=== PATIENT | female | born 1935 | race Caucasian/White ===

== ENCOUNTER 2017-05-14 10:38 | Inpatient (IN) ==
[2017-05-14] MEDS ORDERED: ASPIRIN PO STA (10:51)
[2017-05-14] MEDS ORDERED: NS 1,000 ML IV ONE ×2 (10:56→12:45)
[2017-05-14] MEDS ORDERED: ZOFRAN IV ONE (11:20)
--- NOTE | 2017-05-14 11:21 | EKG Report ---
Test Performed on : 05/14/2017 11:18:10 AM Test Reason : CHEST PAIN Blood Pressure : / mmHG Vent. Rate : 077 BPM Atrial Rate : 077 BPM P-R Int : 162 ms QRS Dur : 090 ms QT Int : 396 ms P-R-T Axes : 059 038 058 degrees QTc Int : 448 ms Normal sinus rhythm. Nonspecific ST abnormality Abnormal ECG No previous ECGs available Unconfirmed Result
[2017-05-14 11:27] LABS: MANUAL DIFF NEEDED? NO
[2017-05-14 11:31] LABS: HEMATOCRIT 30.6 % (37.0-47.0); HEMOGLOBIN 11.5 g/dL (12.0-16.0); IMM GRAN# 0.02 X1000 (0.0-0.04); IMM GRAN% 0.2 % (0.0-0.5); LYMPH% 3.8 % (20.5-51.1); MCH 31.8 PG (27-31); MCHC 37.6 g/dL (33-37); MCV 84.5 FL (81-99); MONO% 3.8 % (1.7-9.3); MPV 8.5 FL (7.4-10.4); NEUT% 92.2 % (42.2-75.2); PLT 254 X1000 (130-400); RBC 3.62 XMIL (4.2-5.4)
--- NOTE | 2017-05-14 11:54 | Diag Imaging Result Doc PS360 ---
EXAM: CHEST-2 VIEWS HISTORY: CP TECHNIQUE: PA and lateral chest COMMENT: There is apparent COPD. There is marked upper thoracic kyphosis. The heart size and pulmonary vascularity are within normal limits and there are no previous studies. IMPRESSION: COPD. Electronically signed by Jamie Wynne 05/14/2017 11:52 AM
--- NOTE | 2017-05-14 11:57 | Diag Imaging Result Doc PS360 ---
EXAM: ABDOMEN FLAT/UPRIGHT HISTORY: vomiting TECHNIQUE: Flat and upright abdomen COMMENT: There is a large amount of stool in the rectum. There is no evidence of bowel obstruction organomegaly or mass. IMPRESSION: Fecal impaction. Electronically signed by Jamie Wynne 05/14/2017 11:54 AM
[2017-05-14] MEDS ORDERED: DULCOLAX PO ONE (12:05)
[2017-05-14 12:19] LABS: AGAP 17; ALBUMIN 4.7 g/dL (3.5-5.0); ALKALINE PHOSPHATASE 65 U/L (32-104); BUN 13 mg/dL (8-22); CALCIUM 9.3 mg/dL (8.8-10.2); CHLORIDE 69 mmol/L (98-107); CK PROFILE 360 U/L (24-173); COSMO 222; GOT 32 U/L (10-30); GPT 22 U/L (10-36); MAGNESIUM 1.5 mg/dL (1.5-2.7); TCO2 21 mmol/L (25-35); TOTAL PROTEIN 7.1 g/dL (6.3-8.3)
[2017-05-14 12:35] LABS: CK INDEX 2.9 (0.0-2.5); CK-MB 10.32 ng/mL (0.0-5.0)
[2017-05-14] MEDS ORDERED: POTASSIUM CHLORIDE 20% LIQUID PO ONE (12:44)
--- NOTE | 2017-05-14 12:55 | PROVIDER DOCUMENTATION ---
This chart was entered by Maureen Kimble Scribe, acting as scribe for Dg Castro MD. HPI-General Adult - General Chief Complaint: Weakness Stated Complaint: weakness Time Seen by Provider: 05/14/17 10:54 Source: patient, family Allergies/Adverse Reactions: Patient Allergies Allergy/AdvReac Type Severity Reaction Status Date / Time divalproex sodium Allergy Unknown Verified 05/14/17 10:41 [From Depakote] morphine Allergy Unknown Verified 05/14/17 10:41 Home Medications: Home Medication List Medication Instructions Recorded Confirmed Last Taken Type Budesonide [Pulmicort Flexhaler] 05/14/17 05/14/17 Unknown History Celecoxib [Celecoxib] 05/14/17 Unknown History Metoprolol Tartrate [Metoprolol 05/14/17 05/14/17 Unknown History Tartrate] Valsartan/Hydrochlorothiazide 1 each PO DAILY 05/14/17 05/14/17 Unknown History [Valsartan-Hctz 160-25 mg Tab] - History of Present Illness -Gen Adult Nature of Presenting Problems: 81 yo F presents to the ER with complaint of n/v and weakness x3 days. States they have been having some "family problems" and this was when it all started. Denies CP or SOB. Onset/Duration: reports: 3 days ago Associated Symptoms: reports: nausea, vomiting, weakness Review of Systems - Adult - REVIEW OF SYSTEMS - ADULT Constitutional: denies: chills, fever Eyes: reports: no symptoms reported Ears, Nose, Mouth & Throat: reports: no symptoms reported Cardiovascular: denies: chest pain, palpitations Respiratory: denies: cough, shortness of breath Gastrointestinal: reports: nausea, vomiting. denies: abdominal pain, diarrhea Genitourinary: reports: no symptoms reported Musculoskeletal: reports: no symptoms reported Integumentary: reports: no symptoms reported Neurological: reports: no symptoms reported Psychiatric: reports: no symptoms reported Endocrine: reports: no symptoms reported Hematologic/Lymphatic: reports: no symptoms reported Allergic/Immunologic: reports: no symptoms reported All Other Systems: Reviewed and Negative Past History - Adult - PAST MEDICAL HISTORY-ADULT Review of Records: reports: Nursing Assessment Review, Medications Reviewed Cardiovascular: reports: HTN Musculoskeletal: reports: arthritis (rheumatoid) - PRIOR SURGERIES/PROCEDURES Surgical/Procedure History: reports: hysterectomy - IMMUNIZATION STATUS Childhood Immunizations: See Nurse Assessment Flu Vaccine: See Nurse Assessment Physical Exam-General - PHYSICAL EXAM-ADULT Initial Vital Signs Reviewed: Yes - CONSTITUTIONAL General Appearance: alert, no apparent distress - EYES Eyes: PERRL/EOMI, pink conjunctivae - HEAD, EARS, NOSE, MOUTH & THROAT HENMT: normocephalic/atraumatic, normal ENT inspection - NECK Neck: supple, normal inspection - RESPIRATORY Respiratory: no respiratory distress, no accessory muscle use - CARDIOVASCULAR Cardiovascular: normal peripheral pulses, regular rate, rhythm - GASTROINTESTINAL (ABDOMEN) Abdominal Exam: normal bowel sounds, non tender, soft - MUSCULOSKELETAL Back Exam: no CVA tenderness, no vertebral tenderness Extremity: normal range of motion, non-tender, other (arthropathy of joints) - SKIN Integumentary: normal color, warm/dry - NEUROLOGIC Neurologic: grossly normal, no motor/sensory deficits - PSYCHIATRIC Psych/Mental Status: normal mood/affect, normal thought content, normal thought process, oriented x 3 Progress - PLAN OF CARE/RESULTS Progress/Plan/Lab Results: Vital Signs - 8 hr 05/14/17 10:48 Temperature 95 F L Pulse Rate 72 Respiratory Rate 18 Blood Pressure 164/85 O2 Sat by Pulse Oximetry 98 Orders Category Date Time Status Cardiac Monitoring DIRECTED Care 05/14/17 10:52 Active Oxygen Therapy- ED Nursing DIRECTED Care 05/14/17 10:52 Active Saline Loc NOW Care 05/14/17 10:52 Active CHEST-2 VIEWS [RAD] Stat Exams 05/14/17 10:52 Ordered flat [ABDOMEN FLAT/UPRIGHT] [RAD] Stat Exams 05/14/17 10:53 Ordered CBC WITH ELECTRONIC DIFF [HEME] Stat Lab 05/14/17 10:52 Ordered CK PROFILE [SP CHEM] Stat Lab 05/14/17 10:52 Ordered COMPREHENSIVE METABOLIC PANEL [CHEM] Stat Lab 05/14/17 10:52 Ordered MAGNESIUM [CHEM] Stat Lab 05/14/17 10:52 Ordered PRO B-NATRIURETIC PEPTIDE Stat Lab 05/14/17 10:52 Ordered PR[address]IME WITH INR PL [COAG] Stat Lab 05/14/17 10:[address] [COAG] Stat Lab 05/14/17 10:52 Ordered TROPONIN T Stat Lab 05/14/17 10:52 Ordered Aspirin Med 05/14/17 10:51 Discontinued 325 mg PO STAT STA EKG [EKG] Stat Ther 05/14/17 10:52 Ordered Result Diagrams: 05/14/17 11:23 05/14/17 11:23 - EKG 1 Time of EKG reading by physician:: 11:18 EKG Read and Signed by:: Dg Castro EKG Interpretation (*Must complete 3 of following elements*): Abnormal Rate: 77 Rhythm: normal sinus rhythm [place]: normal QRS: normal [place] Interval: normal ST Wave: non-specific ST changes - XRAY 1 XRAY Study: Chest Impression: See EMR Report (COPD, per radiologist) 2 XRAY Study: Abdomen Impression: Abnormal (fecal impaction, per radiologist) - CONSULTS/PCP/HOSPITALIST Notification #1 *Consult/PCP/Hospitalist*: Dr. Collado Time Discussed: 12:51 Consult Disposition: Admit Departure - Departure Date of Disposition Decision: 05/14/17 Time of Disposition Decision: 12:54 DIAGNOSIS: Hyponatremia syndrome CHF (congestive heart failure), NYHA class I Qualifiers: Congestive heart failure type: diastolic Congestive heart failure chronicity: chronic Qualified Code(s): I50.32 - Chronic diastolic (congestive) heart failure Constipation Qualifiers: Constipation type: other constipation type Qualified Code(s): K59.09 - Other constipation Disposition: ADMITTED INPATIENT 09 Certified Medical Emergency: Emergent Condition: Stable Referrals and Follow-Ups: Sancho Collado MD [Primary Care Provider] - - Critical Care Note This patient required my direct & personal management of CC.: No This chart was documented by the indicated scribe, (Maureen Kimble Scribe) and accurately reflects the services I performed and decisions made by me, Dg Castro MD, as attested by the provider's signature.
[2017-05-14] MEDS ORDERED: CITRATE OF MAGNESIA PO ONE (12:56)
[2017-05-14 13:06] LABS: SODIUM 107 mmol/L (136-145)
[2017-05-14 14:06] LABS: POTASSIUM 3.1 mmol/L (3.5-5.1)
[2017-05-14] MEDS: TYLENOL PO PRN ×2 (16:53→22:05)
[2017-05-14] MEDS ORDERED: PULMICORT FLEXHALER INH PRN (19:55)
[2017-05-14] MEDS ORDERED: PULMICORT INH PRN (20:01)
[2017-05-14 20:29] LABS: AGAP 12; BUN 12 mg/dL (8-22); CALCIUM 8.6 mg/dL (8.8-10.2); CHLORIDE 80 mmol/L (98-107); COSMO 231; POTASSIUM 3.2 mmol/L (3.5-5.1); SODIUM 113 mmol/L (136-145); TCO2 22 mmol/L (25-35)
[2017-05-14] MEDS: LOPRESSOR PO SCH (22:05)
[2017-05-15 06:01] LABS: HEMATOCRIT 30.2 % (37.0-47.0); MCH 31.3 PG (27-31); MCHC 36.4 g/dL (33-37); RBC 3.51 XMIL (4.2-5.4)
[2017-05-15 06:46] LABS: AGAP 15; ALBUMIN 4.3 g/dL (3.5-5.0); ALKALINE PHOSPHATASE 59 U/L (32-104); BUN 13 mg/dL (8-22); CALCIUM 8.9 mg/dL (8.8-10.2); CHLORIDE 80 mmol/L (98-107); COSMO 233; GOT 34 U/L (10-30); GPT 21 U/L (10-36); MAGNESIUM 2.1 mg/dL (1.5-2.7); POTASSIUM 2.7 mmol/L (3.5-5.1); TCO2 20 mmol/L (25-35); TOTAL PROTEIN 6.3 g/dL (6.3-8.3)
[2017-05-15 06:47] LABS: SODIUM 115 mmol/L (136-145)
[2017-05-15] MEDS: LOPRESSOR PO SCH ×2 (08:39→21:24)
[2017-05-15] MEDS: NS 1,000 ML IV SCH ×2 (08:40→22:58)
[2017-05-15] MEDS: POTASSIUM CHLORIDE 20 MEQ/SWI 20 MEQ/100 ML IVPB IV SCH ×2 (08:40→10:59)
[2017-05-15] MEDS: TYLENOL PO PRN ×2 (09:07→17:56)
--- NOTE | 2017-05-15 12:25 | PROGRESS NOTE ---
DATE: 05/15/2017 SUBJECTIVE: Patient notes she is feeling a little bit better. In fact, she is asking to go home. Denies any current chest pain or palpitations. OBJECTIVE: Vital Signs: Reviewed. Temperature 97 degrees, pulse 80, respiratory 18, BP 140/58, sat 94% on room air. General: Patient is awake, alert. Currently, she is in no respiratory distress. She is pleasant to talk with. Neck: Supple. CV: Regular rate. Chest: Relatively clear. Abdomen: Soft. Extremities: Moves all extremities. Neurologic: No focal changes. LABS: Hemoglobin 11 and hematocrit 30, sodium 115, potassium 2.7. Carbon dioxide 20, glucose 107. ASSESSMENT: 1. Hyponatremia, currently continues to slowly improve as anticipated. Sodium was 107 on admit, currently 115. We will restart IV fluids. 2. Hypokalemia. We will replace. 3. Hyperglycemia, stable. 4. Generalized fatigued. 5. Chronic obstructive pulmonary disease. 6. Hypertension. PLAN: 1. We will continue to hold her valsartan 160/25, as her blood pressure actually has been low while she has been in the hospital 103s to 111s. Currently is up to 140. Certainly, will restart valsartan alone when her blood pressure is warranted. 2. Hyponatremia. Continue normal saline. Sodium is slowly improving. 3. Hypokalemia. We will replace IV and p.o. Recheck in the a.m. 4. Failure to thrive with frequent falls likely secondary to her hyponatremia. 5. We will continue to follow. Further orders as needed. cc: Sancho Collado MD
--- NOTE | 2017-05-15 15:55 | HISTORY AND PHYSICAL ---
CHIEF COMPLAINT: Fatigue. HISTORY OF PRESENT ILLNESS: The patient is an 81-year-old female who presents to the emergency department complaining of being tired, fatigued, short of breath, not feeling well. States symptoms have come on suddenly over the past few days. Denies any dysuria or frequency. She does state she has had some nausea and vomiting, but then states that she has been eating and drinking well. Denies chest pain or palpitations; however, states she has been stressed emotionally prior to the onset of the symptoms and felt that was the cause. REVIEW OF SYSTEMS: As noted above. Denies any fevers, chills, chest pain, or palpitations. Denies any dysuria, frequency, urgency, hesitancy, polyuria, or polydipsia. Denies any skin rashes, weight loss, or weight gain. Denies any melena or hematochezia. PAST MEDICAL HISTORY: Hypertension, rheumatoid arthritis. MEDICATIONS: Valsartan HCT, metoprolol, Celebrex, Pulmicort. ALLERGIES: Depakote and morphine. FAMILY HISTORY: Noncontributory. SOCIAL HISTORY: Patient lives at home. She does not smoke or drink. PHYSICAL EXAMINATION: VITAL SIGNS: Temperature 98 degrees, pulse 72, respiratory rate 18, blood pressure 164/85, saturation 98% on room air. GENERAL: Patient is awake, alert, currently in no real respiratory distress. She is pleasant to talk with. Speech is regular. Memory is intact. HEENT: Normocephalic, atraumatic. [place]. NECK: Supple. CARDIOVASCULAR: Regular rate. CHEST: Relatively clear. ABDOMEN: Soft. EXTREMITIES: Moves all extremities. NEUROLOGIC: No focal changes. SKIN: Warm and dry. No rashes. LABORATORIES: Hemoglobin and hematocrit 11 and 30. Sodium 107, potassium 3.1, glucose 164. EKG: Nonspecific ST and T-wave changes. Chest x-ray: Clear. ASSESSMENT: 1. Hyponatremia, likely iatrogenically caused with hydrochlorothiazide. 2. Hypertension. 3. Fatigue. 4. Chronic atrial fibrillation. 5. Dyspnea on exertion, likely secondary to low sodium. PLAN: We will admit patient to the hospital. We will hold her HCT for now. We will continue to follow. We will actually hold her valsartan, as well, as her blood pressures are actually low, in the 100s. Will readdress as needed. We will not use 3% saline presently as she is awake, alert, oriented, and she is in no distress. We will continue to follow. Place her on telemetry. Further orders as needed. cc: Sancho Collado MD
[2017-05-15] MEDS ORDERED: KLOR-CON PO ONE (18:00)
[2017-05-16] MEDS: TYLENOL PO PRN ×2 (00:02→21:26)
[2017-05-16 06:09] LABS: HEMATOCRIT 31.9 % (37.0-47.0); HEMOGLOBIN 11.1 g/dL (12.0-16.0); MCH 31.3 PG (27-31); MCHC 34.8 g/dL (33-37); MCV 89.9 FL (81-99); MPV 9.4 FL (7.4-10.4); RBC 3.55 XMIL (4.2-5.4)
[2017-05-16 06:38] LABS: AGAP 9; ALBUMIN 3.8 g/dL (3.5-5.0); ALKALINE PHOSPHATASE 59 U/L (32-104); BUN 12 mg/dL (8-22); CALCIUM 8.7 mg/dL (8.8-10.2); CHLORIDE 95 mmol/L (98-107); COSMO 250; GOT 28 U/L (10-30); GPT 21 U/L (10-36); MAGNESIUM 1.8 mg/dL (1.5-2.7); POTASSIUM 4.4 mmol/L (3.5-5.1); SODIUM 124 mmol/L (136-145); TCO2 21 mmol/L (25-35); TOTAL PROTEIN 6.1 g/dL (6.3-8.3)
[2017-05-16] MEDS: LOPRESSOR PO SCH ×2 (09:02→21:26)
[2017-05-16] MEDS: CELEBREX PO SCH (10:06)
[2017-05-16] MEDS: SODIUM CHLORIDE PO SCH ×2 (10:06→21:25)
[2017-05-16] MEDS: DIOVAN PO SCH (10:06)
--- NOTE | 2017-05-16 15:37 | PROGRESS NOTE ---
DATE: 05/16/2017 SUBJECTIVE: Patient notes that she is feeling better. She is less confused. States that she did not realize how confused she had gotten prior to the admission. Denies any chest pain, palpitations. Denies any GI or issues currently. OBJECTIVE: Vital Signs: Reviewed. She is awake, alert, oriented. She is in no respiratory distress. Blood pressure is stable. Heart rate 90s, respiratory 20. General: Patient awake alert, oriented. She is pleasant to talk with. Speech is regular. Memory is intact. Neck: Supple. CV: Regular rate. Chest: Relatively clear, nonlabored, no wheezing. Abdomen: Soft. Extremities: Moves all extremities. Neuro: No focal changes. LAB: Sodium 124. ASSESSMENT: 1. Hyponatremia. Continues to improve. Her sodium was 107 on admit, 124 this morning after IV fluids. 2. Metabolic encephalopathy secondary to hyponatremia resolved. 3. Hypertension, stable. 4. Chronic fatigue, stable. 5. Chronic atrial fibrillation, stable. PLAN: Will saline lock at this point. Will add salt tablets to her diet today, stop her hydrochlorothiazide. Will restart her [place] and hopefully home in the a.m. cc: Sancho Collado MD
[2017-05-17 06:20] LABS: HEMATOCRIT 33.3 % (37.0-47.0); HEMOGLOBIN 11.2 g/dL (12.0-16.0); MCH 31.1 PG (27-31); MCHC 33.6 g/dL (33-37); MCV 92.5 FL (81-99); MPV 9.5 FL (7.4-10.4); RBC 3.6 XMIL (4.2-5.4)
[2017-05-17 06:40] LABS: AGAP 12; ALBUMIN 3.8 g/dL (3.5-5.0); ALKALINE PHOSPHATASE 61 U/L (32-104); BUN 10 mg/dL (8-22); CALCIUM 8.9 mg/dL (8.8-10.2); CHLORIDE 96 mmol/L (98-107); COSMO 256; GOT 24 U/L (10-30); GPT 21 U/L (10-36); POTASSIUM 4.6 mmol/L (3.5-5.1); SODIUM 128 mmol/L (136-145); TCO2 21 mmol/L (25-35); TOTAL PROTEIN 5.8 g/dL (6.3-8.3)
[2017-05-17] MEDS: LOPRESSOR PO SCH (09:09)
[2017-05-17] MEDS: DIOVAN PO SCH (09:09)
[2017-05-17] MEDS: SODIUM CHLORIDE PO SCH (09:09)
[2017-05-17] MEDS: CELEBREX PO SCH (09:09)
[2017-05-17 15:51] VITALS: BP 120/107
--- NOTE | 2017-05-18 06:19 | DISCHARGE SUMMARY ---
ADMISSION DATE: 05/14/2017 DISCHARGE DATE: 05/17/2017 DISCHARGE DIAGNOSES: 1. Hyponatremia. Continues to improve. Currently, her sodium is up to 128. 2. Anemia of chronic disease. 3. Adult failure to thrive. 4. Metabolic encephalopathy secondary to hyponatremia, resolved. 5. Hypertension, stable. 6. Chronic fatigue. 7. Chronic atrial fibrillation. CONSULTATIONS: None. PROCEDURES: None. BRIEF HOSPITAL COURSE: Patient is an 81-year-old female who was admitted as noted on the HPI. Treated in the usual fashion. She currently is in no respiratory distress. She is awake, alert, feeling much better. She will be discharged home. We did change her medications as noted below. DISPOSITION: Patient will stop valsartan/hydrochlorothiazide and will only take valsartan until followup. She will continue her Celebrex, Mobic, Pulmicort. We will also discharge her home with sodium chloride 1 g daily until followup. DISCHARGE INSTRUCTIONS: She will follow up in the office this week. We will recheck her labs. Thirty minutes were spent in total care. cc: Sancho Collado MD
== END 2017-05-17 01:50 | disposition home health service (06) ==
LOC: P.ED 10:38 → P.MEDSURG 13:08
PROVIDERS: ADMIT Family Medicine; ATTEND Family Medicine